=== PATIENT | female | born 1940 | race Caucasian/White ===

== ENCOUNTER 2017-02-14 14:28 | Observation (INO) | payer MEDICARE ==
[~2017-02-14] VITALS: Ht 162.6 cm; Wt 86.3 kg
[2017-02-14] MEDS ORDERED: SIMV20TA3 PO (15:03)
[2017-02-14] MEDS ORDERED: VALS320T2 PO (15:03)
[2017-02-14] MEDS ORDERED: SODIUM CHLORIDE FLUSH 10ML SYR IVF ONE (15:30)
[2017-02-14 15:56] LABS: HEMATOCRIT 48.5 % (34.6-47.8); HEMOGLOBIN 16.2 g/dL (11.7-16.4); WHITE BLOOD COUNT 17.8 x10^3/uL (3.4-10)
[2017-02-14 16:09] LABS: BLOOD UREA NITROGEN 25 mg/dL (7-18)
[2017-02-14 16:14] LABS: IS PT STATUS REG ER OR PRE ER? YES
[2017-02-14 19:05] VITALS: BP 136/89
[2017-02-14] MEDS ORDERED: ACETAMINOPHEN 325 MG TABLET PO PRN (20:00)
[2017-02-14] MEDS: ENOXAPARIN 30 MG/0.3 ML SQ SCH (20:00)
[2017-02-14] MEDS ORDERED: GUAIFENESIN/DM 200-20MG, 10ML UDC PO PRN (20:00)
[2017-02-14] MEDS ORDERED: ONDANSETRON ODT 4 MG PO PRN (20:00)
[2017-02-14] MEDS ORDERED: SIMVASTATIN 20 MG TABLET PO SCH (21:00)
[2017-02-14 23:14] LABS: IS PT STATUS REG ER OR PRE ER? NO
[2017-02-15 01:31] VITALS: BP 134/71
[2017-02-15 06:40] LABS: IS PT STATUS REG ER OR PRE ER? NO
[2017-02-15 07:30] VITALS: BP 125/80
[2017-02-15] MEDS ORDERED: OMEPRAZOLE 20 MG CAPSULE.DR PO SCH (07:30)
[2017-02-15] MEDS: ENOXAPARIN 30 MG/0.3 ML SQ SCH (08:00)
[2017-02-15] MEDS ORDERED: VALSARTAN 320 MG TABLET PO SCH (09:00)
[2017-02-15] MEDS ORDERED: OMEP-110 PO (15:08)
== END 2017-02-15 16:49 | disposition home or self-care (01) ==
LOC: ED 17:34 → EDIP 17:35 → INTOOBSV 17:35 → ED 17:54 → 5SO 18:39
PROVIDERS: ADMIT Hospitalist; ATTEND Hospitalist
DX: R07.89 Other chest pain (principal); D72.829 Elevated white blood cell count, unspecified; E78.5 Hyperlipidemia, unspecified; I10 Essential (primary) hypertension; J45.909 Unspecified asthma, uncomplicated; E78.00 Pure hypercholesterolemia, unspecified
CPT/HCPCS: 36415; 71010; 80048; 82040; 83880; 84484; 85025; 93005; 93017; 99285; G0378

== ENCOUNTER → 2017-03-26 | Outpatient (CLI) | payer MEDICARE ==
[~2017-03-26] MED LIST: OMEP-110 PO; OMNIPAQUE 350 MG/ML, 150 ML BOTTLE ONE; SIMV20TA3 PO; VALS320T2 PO
== END | disposition home or self-care (01) ==
LOC: CFH 09:58
PROVIDERS: ATTEND Nurse Practitioner Family
DX: R93.8 Abnormal findings on diagnostic imaging of other specified body structures (principal); K76.0 Fatty (change of) liver, not elsewhere classified; K57.30 Diverticulosis of large intestine without perforation or abscess without bleeding; I70.0 Atherosclerosis of aorta; N28.1 Cyst of kidney, acquired; M47.899 Other spondylosis, site unspecified; Z90.49 Acquired absence of other specified parts of digestive tract
CPT/HCPCS: 74178; Q9967

== ENCOUNTER → 2017-04-04 | Outpatient (CLI) | payer MEDICARE ==
[~2017-04-04] MED LIST changes: -OMNIPAQUE 350 MG/ML, 150 ML BOTTLE ONE
== END | disposition home or self-care (01) ==
LOC: CFH 06:58
PROVIDERS: ATTEND Student in an Organized Health Care Education/Training Program
DX: N30.81 Other cystitis with hematuria (principal); R31.21 Asymptomatic microscopic hematuria
CPT/HCPCS: 76856

== ENCOUNTER 2019-05-18 05:33 | Day surgery (SDC) | payer MEDICARE ==
[~2019-05-18] VITALS: Ht 160 cm; Wt 88.0 kg
[~2019-05-18 05:33] MED LIST changes: +SIMV20TA19 PO; -SIMV20TA3 PO
[2019-05-18] MEDS ORDERED: LACTATED RINGERS 1,000 ML IV SCH (06:15)
[2019-05-18] MEDS ORDERED: BUPIVACAINE/PF 0.5% ONE (06:20)
[2019-05-18] MEDS ORDERED: LIDOCAINE 1%, 20ML ONE (06:20)
[2019-05-18 06:33] VITALS: BP 150/88
[2019-05-18] MEDS ORDERED: PROPOFOL 50 ML ONE (06:45)
[2019-05-18] MEDS ORDERED: BETAMETHASONE 6 MG/ML, 5ML IM ONE (06:53)
[2019-05-18] MEDS ORDERED: EPHEDRINE 50 MG/ML, 1ML IVPush PRN (07:00)
[2019-05-18] MEDS ORDERED: hydrALAzine 20 MG/ML, 1ML IV PRN (07:00)
[2019-05-18] MEDS ORDERED: OXYcodone 5 MG/5 ML ORAL.SOL UDC PO PRN (07:00)
[2019-05-18] MEDS ORDERED: FENTANYL PF 100 MCG/2ML IV PRN (07:00)
[2019-05-18] MEDS ORDERED: MEPERIDINE/PF 25MG/ML,1ML IVPush PRN (07:00)
[2019-05-18] MEDS ORDERED: PROMETHAZINE 25 MG/ML, 1ML IV PRN (07:00)
[2019-05-18] MEDS ORDERED: HYDROmorphone 2 MG/ML, 1ML IVPush PRN (07:00)
[2019-05-18] MEDS ORDERED: LABETALOL 5MG/ML, 20ML IV PRN (07:00)
[2019-05-18] MEDS ORDERED: ACETAMINOPHEN 500 MG TABLET PO ONE (07:00)
[2019-05-18] MEDS ORDERED: ONDANSETRON 2MG/ML, 2ML IV PRN (07:00)
[2019-05-18] MEDS ORDERED: SODIUM CHLORIDE 0.9% PF 10ML ONE (07:09)
[2019-05-18] MEDS ORDERED: CEFAZOLIN 1,000 MG ONE ×2 (07:09)
== END 2019-05-18 09:05 | disposition home or self-care (01) ==
LOC: OUT 05:33
PROVIDERS: ATTEND Orthopaedic Surgery
DX: G56.01 Carpal tunnel syndrome, right upper limb (principal); M18.11 Unilateral primary osteoarthritis of first carpometacarpal joint, right hand; M19.041 Primary osteoarthritis, right hand; I12.9 Hypertensive chronic kidney disease with stage 1 through stage 4 chronic kidney disease, or unspecified chronic kidney disease; N18.3 Chronic kidney disease, stage 3 (moderate); E78.5 Hyperlipidemia, unspecified; M06.9 Rheumatoid arthritis, unspecified; Z79.899 Other long term (current) drug therapy; Z88.8 Allergy status to other drugs, medicaments and biological substances; Z91.018 Allergy to other foods; Z90.49 Acquired absence of other specified parts of digestive tract; Z98.51 Tubal ligation status; Z98.890 Other specified postprocedural states
CPT/HCPCS: 20600; 64721; 93005; J0690; J0702; J2704; J7120